=== PATIENT | female | born 1960 | race Caucasian/White ===

== ENCOUNTER 2019-02-25 10:49 | Emergency (ER) | payer OTHER ==
[~2019-02-25] VITALS: Ht 152.4 cm; Wt 79.4 kg
[2019-02-25] MEDS ORDERED: AVAPRO300 MG (11:29)
[2019-02-25] MEDS ORDERED: DILTIAZEM ER240 MG (11:29)
[2019-02-25] MEDS ORDERED: METFORMIN HCL500 M1 (11:30)
[2019-02-25] MEDS ORDERED: CRESTOR5 MG (11:31)
[2019-02-25] MEDS ORDERED: JANUMET 50-1,01 EACH (11:31)
== END 2019-02-25 14:29 | disposition home or self-care (01) ==
LOC: ER 10:49
DX: J20.9 Acute bronchitis, unspecified (principal)